=== PATIENT | female | born 1945 | race Caucasian/White ===

== ENCOUNTER 2020-07-26 09:09 | Outpatient (CLI) | payer MEDICARE, SELFPAY ==
--- NOTE | ~2020-07-26 | CT_ITS ---
EXAMINATION: CT shoulder LT wo con DATE: 07/26/2020 09:50 INDICATION: Primary osteoarthritis of the left shoulder. TECHNIQUE: High resolution computed tomography (CT) of the left shoulder was performed without intrav enous contrast. Additional sagittal and coronal reconstructions were performed. Automated exposure co ntrol and iterative reconstruction technique were employed. The dose-length product was 595.42 mGy-cm . COMPARISON: Left shoulder radiographs dated 07/11/2020 FINDINGS: Advanced left glenohumeral osteoarthritis. There is prominent subarticular sclerosis and cystic ricks e along the humeral head and along portions of the glenoid primarily superiorly and anteriorly. 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 Moderate sized osteophytes along the inferior and post erior aspect of the humeral head. No fracture. Moderate acromioclavicular osteoarthritis. Small subac romial spur. There is moderate fatty atrophy of the supraspinatus muscle belly suggesting a likely shepherd praspinatus tendon tear. Small left glenohumeral joint effusion with additional fluid in the subacrom ial/subdeltoid bursa suggesting either bursitis or full thickness rotator cuff tear. Visualized porti ons of the left lung are clear. No pathologically enlarged lymphadenopathy at the left axilla, left h ilum and visualized mediastinum. Mild thoracic dextrocurvature with severe spondylosis. IMPRESSION: 1. Advanced left glenohumeral osteoarthritis. 2. Moderate acromioclavicular osteoarthritis. 3. Moderate fatty atrophy of the supraspinatus muscle belly suggesting supraspinatus tendon tear. 4. Moderate amount of fluid in the subacromial/subdeltoid bursa which could be related to either burs itis or extension of fluid through a full-thickness rotator cuff tear. Reviewed, dictated and finalized at location A. D TRAFFIC INVESTIGATOR IMPRESSION: 1. Advanced left glenohumeral osteoarthritis. 2. Moderate acromioclavicular osteoarthritis. 3. Moderate fatty atrophy of the supraspinatus muscle belly suggesting supraspi natus tendon tear. 4. Moderate amount of fluid in the subacromial/subdeltoid bursa which could be related to either bursitis or extension of fluid through a full-thickness rotat or cuff tear.
== END 2020-07-26 09:10 | disposition home or self-care (01) ==
PROVIDERS: PCP Family Medicine; Visit Provider Orthopaedic Surgery
DX: M19.012 Primary osteoarthritis, left shoulder (principal); M62.522 Muscle wasting and atrophy, not elsewhere classified, left upper arm
CPT/HCPCS: 73200